=== PATIENT | male | born 1995 | race Two or more races ===

== ENCOUNTER 2018-11-24 02:31 | Emergency (ER) | payer SELFPAY ==
[~2018-11-24] VITALS: Ht 170.2 cm; Wt 77.1 kg
[2018-11-24 02:31] VITALS: BP 120/78
[~2018-11-24 02:31] MED LIST: NKM
--- NOTE | 2018-11-24 02:49 | Emergency Room Report ---
History of Present Illness General Chief Complaint: Laceration Source: Patient Present Illness HPI This is a 22-year-old male who is right-hand dominant. He presents with chief complaint of left forearm laceration. He was drinking tonight at a [employer]. He somehow fell and sustained a laceration to his left forearm. He doesn't remember what happened. No head injury. There was bleeding is controlled with pressure. No other injury. Pain over that area. Allergies: Coded Allergies: No Known Allergies (Unverified , 11/24/18) Patient History Past Medical History: see triage record, old chart reviewed Past Surgical History: none Pertinent Family History: none Social History: Denies: smoking Immunizations: other Reviewed Nursing Documentation: PMH: Agreed; PSxH: Agreed Nursing Documentation-PMH Past Medical History: No History, Except For Hx Asthma: Yes Review of Systems Eye: Denies: eye pain, blurred vision ENT: Denies: ear pain, nose congestion, throat swelling Respiratory: Denies: cough, shortness of breath Cardiovascular: Denies: chest pain, palpitations Gastrointestinal: Denies: abdominal pain, diarrhea, nausea, vomiting Musculoskeletal: Reports: muscle pain; Denies: back pain, joint pain Skin: Denies: rash Neurological: Denies: headache, numbness Endocrine: Denies: increased thirst, increased urine Hematologic/Lymphatic: Denies: easy bruising All Other Systems: negative except mentioned in HPI Physical Exam Vital Signs Date Time Temp Pulse Resp B/P (MAP) Pulse Ox O2 Delivery O2 Flow Rate FiO2 11/24/18 02:19 97.9 93 18 120/78 98 Room Air vitals normal Sp02 EP Interpretation: reviewed, normal General Appearance: well appearing, no apparent distress, alert, other - Intoxicated. Strong smell of alcoholic beverage on breath Head: normocephalic, atraumatic Eyes: bilateral eye PERRL, bilateral eye EOMI ENT: hearing grossly normal, normal pharynx Neck: full range of motion, supple, no meningismus Respiratory: chest non-tender, lungs clear, normal breath sounds Cardiovascular #1: regular rate, rhythm, no murmur Gastrointestinal: normal bowel sounds, non tender, no mass, no organomegaly, no bruit, non-distended Musculoskeletal: back normal, gait/station normal, normal range of motion, other - 10 cm lac to left forearm on volar aspect. no FB. no tendon lac. Psychiatric: mood/affect normal Skin: warm/dry Procedures Laceration/Wound Repair Laceration/Wound Repair : Consent: Verbal Wound Location: upper extremity Wound's Depth, Shape: linear, contused tissue Wound Length (cm): 10 Anesthesia: 1% Lidocaine Volume Anesthetic (ccs): 10 Wound Repaired With: sutures Suture Size/Type: 3:0, proline Number of Sutures: 1 Patient Tolerated: Well Complications: None Progress I did one long running suture that is equivalent to 10 interrupted sutures. Medical Decision Making Diagnostic Impression: Primary Impression: Laceration Additional Impression: Alcohol intoxication Qualified Codes: F10.920 - Alcohol use, unspecified with intoxication, uncomplicated ER Course Patient presents with alcohol intoxication and laceration to his left forearm. 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 No evidence of suicidal attempt. Luckily laceration does not involve any tendon or muscle. We'll discharge home. Last Vital Signs Date Time Temp Pulse Resp B/P (MAP) Pulse Ox O2 Delivery O2 Flow Rate FiO2 11/24/18 02:31 97.9 65 18 120/78 98 Room Air Status: improved Disposition: HOME, SELF-CARE Condition: Stable Scripts Cephalexin* (KEFLEX*) 500 Mg Capsule 500 MG ORAL TID, #21 CAP Prov: Sage Kang MD 11/24/18 Patient Instructions: Laceration Care, Adult Additional Instructions: Follow-up with your doctor within a week for recheck. Suture out in 7-10 days. Return if worse. Sage Kang MD Nov 24, 2018 02:49
[2018-11-24] MEDS ORDERED: Tetanus/Diptheria/Pertussis Vaccine 0.5ml Syr IM ONE (03:00)
[2018-11-24] MEDS ORDERED: CEPHALEXIN500 MG ORAL (03:56)
[2018-11-24 04:03] VITALS: BP 122/75
[2018-11-24 04:09] VITALS: BP 122/75
== END 2018-11-24 04:12 | disposition home or self-care (01) ==
LOC: EDBD 02:31 → EMR 02:41
DX: S51.812A Laceration without foreign body of left forearm, initial encounter (principal); F10.129 Alcohol abuse with intoxication, unspecified; W19.XXXA Unspecified fall, initial encounter; Y92.9 Unspecified place or not applicable; Z23 Encounter for immunization
CPT/HCPCS: 90471; 90715; 99283

== ENCOUNTER 2018-12-01 12:22 | Emergency (ER) | payer SELFPAY ==
[~2018-12-01] VITALS: Ht 157.5 cm; Wt 63.5 kg
[~2018-12-01 12:22] MED LIST changes: +CEPHALEXIN500 MG ORAL
--- NOTE | 2018-12-01 12:56 | NUR ---
ED Nurse Note: Pt came in from home due to L hand pain, s/p fall 1 week ago. Pain 03/03 eliel. AOx4, VSS.
[2018-12-01 13:10] VITALS: BP 129/69
--- NOTE | 2018-12-01 13:59 | Emergency Room Report ---
History of Present Illness General Chief Complaint: Upper Extremity Injury Source: Patient Present Illness HPI 22-year-old male presents to the emergency department complaining of 5 out of 10 in severity pain to the left wrist and hand status post fall last week. Patient states that he was seen here in emergency department and had a laceration stitched up however he states he never had any imaging. Patient states he has swelling and persistent pain. Patient denies pain elsewhere he denies hitting his head, loss of consciousness, midline neck or back pain. Denies numbness tingling or loss of sensation or gross motor movements of the extremities, incontinence of bowel or bladder. Denies CP, Palpitations, LOC, AMS , dizziness, Changes in Vision, weakness or a sudden severe headache. Allergies: Coded Allergies: No Known Allergies (Unverified , 11/24/18) Patient History Past Medical History: see triage record Past Surgical History: none Pertinent Family History: none Immunizations: UTD Reviewed Nursing Documentation: PMH: Agreed; PSxH: Agreed Nursing Documentation-PMH Past Medical History: No History, Except For Hx Asthma: Yes Review of Systems All Other Systems: negative except mentioned in HPI Physical Exam Vital Signs Date Time Temp Pulse Resp B/P (MAP) Pulse Ox O2 Delivery O2 Flow Rate FiO2 12/01/18 12:44 98.2 69 20 129/69 99 Room Air Sp02 EP Interpretation: reviewed, normal General Appearance: no apparent distress, alert, GCS 15, non-toxic Head: normocephalic, atraumatic Eyes: bilateral eye normal inspection, bilateral eye PERRL ENT: hearing grossly normal, normal voice Neck: full range of motion Respiratory: chest non-tender, lungs clear, normal breath sounds, speaking full sentences Cardiovascular #1: regular rate, rhythm, normal capillary refill Musculoskeletal: back normal, gait/station normal, normal range of motion, swelling - Left wrist swelling, tender - Left Wrist and hand, negative snuff box. Neurologic: alert, oriented x3, responsive, motor strength/tone normal, sensory intact, speech normal, grossly normal Psychiatric: judgement/insight normal Skin: normal color, no rash, warm/dry, well hydrated, wd healing/no infection noted - sutures in place no infection noted Medical Decision Making PA Attestation Dr. Gu is my supervising Physician whom patient management has been discussed with. Diagnostic Impression: Primary Impression: Left wrist sprain Qualified Codes: S63.502A - Unspecified sprain of left wrist, initial encounter Additional Impression: Laceration ER Course 22-year-old male presents to the emergency department complaining of 5 out of 10 in severity pain to the left wrist and hand status post fall last week. Patient states that he was seen here in emergency department and had a laceration stitched up however he states he never had any imaging. Patient states he has swelling and persistent pain. Patient denies pain elsewhere he denies hitting his head, loss of consciousness, midline neck or back pain. Denies numbness tingling or loss of sensation or gross motor movements of the extremities, incontinence of bowel or bladder. Denies CP, Palpitations, LOC, AMS , dizziness, Changes in Vision, weakness or a sudden severe headache. Ddx considered but are not limited to Fracture, dislocation, contusion, Sprain/ Strain/Spasm, Cellulitis, Vital signs: are WNL, pt. is afebrile H&PE are most consistent with musculoskeletal injury will perform imaging to r/ o fractures/dislocations. -- laceration still healing pt. instructed to return in 5 days for removal ORDERS: - X-ray Left hand - negative for fx, Dislocation, or significant soft tissue injury, per preliminary read in ED, and signed by OPAL Loza, my supervising physician has reviewed, and agrees with my interpretation. ED INTERVENTIONS: - Left Wrist Splint applied by tech ed/woodshop teacher. Pt. remains neurovascularly intact. DISCHARGE: At this time pt. is stable for d/c to home. Will provide printed patient care instructions, and any necessary prescriptions. Care plan and follow up instructions have been discussed with the patient prior to discharge. Other X-Ray Diagnostic Results Other X-Ray Diagnostic Results : X-Ray ordered: Left hand # of Views/Limited Vs Complete: 3 View Indication: Pain EP Interpretation: Yes OPAL Xray: Interpretation reviewed, by supervising MD, and agrees with findings. Interpretation: no dislocation, no soft tissue swelling, no fractures Impression: No acute disease Electronically Signed by: Emily Loza PA-C Last Vital Signs Date Time Temp Pulse Resp B/P (MAP) Pulse Ox O2 Delivery O2 Flow Rate FiO2 12/01/18 13:10 98.2 69 20 129/69 99 Room Air Disposition: HOME, SELF-CARE Condition: Stable Scripts Ibuprofen* (MOTRIN*) 600 Mg Tablet 600 MG ORAL THREE TIMES A DAY, #30 TAB 0 Refills Prov: Emily Loza 12/01/18 Referrals: NOT CHOSEN IPA/MD,REFERRING (PCP) Patient Instructions: Wrist Sprain Additional Instructions: Take medications as directed. SUTURES REMOVED in 5 Days Follow up with a Primary Care Provider in 3-5 days, even if your symptoms have resolved. --Please review list of primary care clinics, if you do not already have a primary care provider Return sooner to ED if new symptoms occur, or current symptoms become worse. - Please note that this Emergency Department Report was dictated using [employer] technology software, occasionally this can lead to erroneous entry secondary to interpretation by the dictation equipment. Emily Loza Dec 01, 2018 13:59
[2018-12-01] MEDS ORDERED: IBUPROFEN600 MG ORAL (14:01)
--- NOTE | 2018-12-01 14:30 | NUR ---
ED Nurse Note: attempted calling pt x 3 pt nonresponsive, unable to find pt. will try again.
--- NOTE | 2018-12-01 14:55 | Diagnostic Imaging Report ---
Indication: left hand pain. Findings: 3 views of the left hand were obtained. Normal alignment is demonstrated. No acute fractures, erosions, or periosteal reaction are seen. Soft tissues are unremarkable. Impression: No acute findings.
--- NOTE | 2018-12-01 15:00 | NUR ---
ELOPEMENT: attempted calling pt multiple times, pt unable to find, nonresponsive, ERMD/Charge nurse notified. Pt was provided w/ plan of care prior to elopement by ERMD.
--- NOTE | 2018-12-01 16:40 | NUR ---
ED Nurse Note: splint not done, pt eloped. please disregard intervention note.
== END 2018-12-01 15:00 | disposition left against medical advice (07) ==
LOC: EMR 13:32
DX: S63.502A Unspecified sprain of left wrist, initial encounter (principal); S61.412A Laceration without foreign body of left hand, initial encounter; W19.XXXA Unspecified fall, initial encounter; Y92.9 Unspecified place or not applicable
CPT/HCPCS: 29125; 99283

== ENCOUNTER 2018-12-07 15:10 | Emergency (ER) | payer SELFPAY ==
[~2018-12-07] VITALS: Ht 160 cm; Wt 63.5 kg
[~2018-12-07 15:10] MED LIST changes: +IBUPROFEN600 MG ORAL
[2018-12-07 15:34] VITALS: BP 130/75
--- NOTE | 2018-12-07 15:34 | NUR ---
ED Nurse Note: Pt came in for a follow up on his left wrist. Pt had sutures done on the left wrist x 14 days ago. No complaintsof pain. A + o x4. Ambulatory.
--- NOTE | 2018-12-07 17:18 | Emergency Room Report ---
History of Present Illness General Chief Complaint: Wound Recheck/Suture Removal Source: Patient Present Illness HPI 22-year-old male presents to the emergency department for suture removal of sutures that were placed in the left forearm 2 weeks ago. Patient denies pain at this time he reports some itching he denies erythema, tenderness, warmth or discharge from the area. Patient states that he has not been wearing his splint regularly. He denies new trauma or fall. Pt. is right hand dominant. Allergies: Coded Allergies: No Known Allergies (Unverified , 12/07/18) Patient History Past Medical History: see triage record Past Surgical History: none Pertinent Family History: none Immunizations: UTD Reviewed Nursing Documentation: PMH: Agreed; PSxH: Agreed Nursing Documentation-PMH Past Medical History: No Stated History Hx Asthma: Yes Physical Exam Vital Signs Date Time Temp Pulse Resp B/P (MAP) Pulse Ox O2 Delivery O2 Flow Rate FiO2 12/07/18 15:16 98.2 76 16 131/76 97 Room Air Medical Decision Making PA Attestation Dr. Scott is my supervising Physician whom patient management has been discussed with. Diagnostic Impression: Primary Impression: Encounter for removal of sutures ER Course 22-year-old male presents to the emergency department for suture removal of sutures that were placed in the left forearm 2 weeks ago. Patient denies pain at this time he reports some itching he denies erythema, tenderness, warmth or discharge from the area. Patient states that he has not been wearing his splint regularly. He denies new trauma or fall. Pt. is right hand dominant. Ddx considered but are not limited to laceration, tendon injury, cellulitis, dehiscence. Vital signs: are WNL, pt. is afebrile H&PE are most consistent with: healing laceration of the left forearm with poor approximation in the medial portion of the laceration. ORDERS: none required at this time, the diagnosis is clinical ED INTERVENTIONS: - -1 long continuous suture is removed. There is some dehiscence in the middle of the laceration, there is no evidence of infection. -Steri strips are applied. I discussed with this patient that it is imperative that he wear his splint as this most likely was the reason for his poor healing of the laceration. Discussed with patient that the remaining dehisced area of the laceration will need to close by secondary intent and to leave the Steri-Strips on and allow them to fall off naturally. Discussed the patient primary care follow-up. DISCHARGE: At this time pt. is stable for d/c to home. Will provide printed patient care instructions, and any necessary prescriptions. Care plan and follow up instructions have been discussed with the patient prior to discharge. Last Vital Signs Date Time Temp Pulse Resp B/P (MAP) Pulse Ox O2 Delivery O2 Flow Rate FiO2 12/07/18 15:34 98.0 78 18 130/75 98 Room Air Disposition: HOME, SELF-CARE Condition: Stable Patient Instructions: Suture Removal, Care After Additional Instructions: Take medications as directed. Follow up with a Primary Care Provider in 3-5 days, even if your symptoms have resolved. --Please review list of primary care clinics, if you do not already have a primary care provider Return sooner to ED if new symptoms occur, or current symptoms become worse. - Please note that this Emergency Department Report was dictated using [email or web address] technology software, occasionally this can lead to erroneous entry secondary to interpretation by the dictation equipment. Emily Loza Dec 07, 2018 17:18
[2018-12-07 17:26] VITALS: BP 120/85
--- NOTE | 2018-12-07 17:27 | NUR ---
ED Nurse Note: Discharge instructions given to pt. Answered all questions. Verbalized understanding. No acute distress noted. ID band removed. Left ER w/ steady gait and all belongings.
== END 2018-12-07 17:25 | disposition home or self-care (01) ==
LOC: EMR 17:20
DX: S61.512D Laceration without foreign body of left wrist, subsequent encounter (principal)
CPT/HCPCS: 99281